=== PATIENT | female | born 2000 | race Caucasian/White ===

== ENCOUNTER 2021-08-27 12:03 | Emergency (ER) | payer BC, MEDICAID, SELFPAY ==
[2021-08-27 12:16] VITALS: BP 128/84; PULSE 95; RESP 16; TEMP 36.9; O2SAT 98
--- NOTE | 2021-08-27 12:22 | W.ED.ABDPA2 ---
HPI - Abdominal Pain General: Chief Complaint: Abdominal Pain Stated Complaint: Loose stool, stomach cramps, bleeding Time Seen by Provider: 08/27/21 12:21 History of Present Illness: HPI narrative: Ms. Rosales is a 21-year-old lady without significant past medical history presents to the emergency department due to diarrhea and blood in stool. She endorses approximately 1 month ago had fairly sudden onset of diarrhea. Since that time she has had episodes of watery stools whenever she has bowel movements. Denies known provoking factor, no antibiotic use. Additionally approximately 1 week ago she developed nausea and vomiting associated with this. Has had difficulty keeping down p.o. intake. Last night she developed blood in her stool. Initially she just noticed it on the toilet paper however subsequently has it with bowel movements in the toilet bowl. No history of hemorrhoids or similar. Mild associated abdominal cramping. Does have some discomfort occasionally relieved with bowel movement. No other signs of systemic illness. No other specific known exacerbating or relieving factors. Patient does believe that she is currently with LMP approximately July 03 or . She did have a positive home test 3 weeks ago. No major surgeries. No allergies. No family history of inflammatory bowel disorders. Review of Systems General: Reports: 10 or more systems reviewed and unremarkable except in HPI and below Physical Exam Narrative: EXAM NARRATIVE: GENERAL/CONSTITUTIONAL - mildly ill-appearing. Eyes - PERRL, no conjunctival injection ENMT - Atraumatic external nose and ears. Moist mucous membranes NECK - supple. trachea midline CARDIOVASCULAR - regular rate and rhythm. RESPIRATORY -clear to auscultation bilaterally. ABDOMEN/GI - mild suprapubic region tenderness palpation without evidence of peritonitis. RECTAL -performed with rehabilitation team lead present. External hemorrhoids palpated on clinical exam, no other acute finding. No grupo blood on glove. MSK - Extremities without obvious deformity or tenderness to palpation SKIN - Warm, Dry NEURO - alert and appropriately oriented. Moves all extremities equally. Course ED course: - Patient was seen and evaluated by me at bedside - Patient placed on cardiac monitors, IV access obtained - Initial evaluation notable for as noted above -Fluids ordered - Labs notable for no leukocytosis, normal hemoglobin. Metabolic panel with mild evidence of dehydration, potassium replenishment ordered. - Imaging notable for [id number] ultrasound without visualized IUP despite hCG, therefore formal radiology performed ultrasound warranted. - Upon serial reexamination after treatment the patient was improved. I discussed risks and benefits of additional imaging, patient comfortable foregoing CT imaging at this time given risk to fetus - Based on patient history, evaluation, labs, and imaging as interpreted the most likely cause of the patient's condition is unclear. Evidence of dehydration present. Hemorrhoids are possible because of blood in stool. - Patient tolerated p.o. intake. - The results of ED evaluation were discussed with the patient including prescriptions and/or symptomatic cares (if applicable) including appropriate and responsible use, followup plan, and return precautions. The patient verbalized understanding and felt safe for discharge. - Patient discharged in satisfactory condition. Vital Signs: Vital signs: Vital Signs Temperature 98.4 F 08/27/21 12:16 Pulse Rate 84 08/27/21 16:32 Respiratory Rate 16 08/27/21 16:32 Blood Pressure 111/64 08/27/21 16:32 Pulse Oximetry 99 08/27/21 16:32 MDM - Abdominal Pain Medical Records: Attestation: I reviewed the patient's medical records. Lab Data: Attestation: I reviewed the patient's lab results. Labs: Lab Results 08/27/21 08/27/21 08/27/21 12:55 12:55 12:55 WBC Cancelled Corrected WBC Cancelled RBC Cancelled Hgb Cancelled Hct Cancelled MCV Cancelled MCH Cancelled MCHC Cancelled RDW Cancelled Plt Count Cancelled MPV Cancelled Gran % Cancelled Neut % (Auto) Cancelled Lymph % (Auto) Cancelled Fisher % (Auto) Cancelled Eos % (Auto) Cancelled Baso % (Auto) Cancelled Neut # (Auto) Cancelled Lymph # (Auto) Cancelled Fisher # (Auto) Cancelled Eos # (Auto) Cancelled Baso # (Auto) Cancelled Absolute Gran (aut o) Cancelled Nucleated RBC % (a uto) Cancelled Nucleated RBCs # Cancelled Sodium 134 mmol/L L mmol /L (136-145) Potassium 3.1 mmol/L L mmol /L (3.5-5.1) Chloride 98 mmol/L mmol/L (98-107) Carbon Dioxide 18 mmol/L L mmol/ L (22-29) Anion Gap 21.1 H (5-19) BUN 5 mg/dL L mg/dL (6-20) Creatinine 0.5 mg/dL mg/dL (0.5-0.9) GFR Calculation 152.9 mL/min H mL /min (90-130) Glucose 96 mg/dL mg/dL (65-115) Calculated Osmolal ity 275 mOsm/kg L mOs m/kg (285-295) Calcium 8.5 mg/dL mg/dL (8.5-10.5) Magnesium Total Bilirubin 0.2 mg/dL mg/dL (0.15-1.2) AST 24 U/L U/L (0-32) ALT 72 U/L H U/L (0-33) Alkaline Phosphata se 90 IU/L IU/L (35-105) Total Protein 7.6 g/dL g/dL (6.6-8.7) Albumin 4.1 g/dL g/dL (3.5-5.2) Globulin 3.5 g/dL g/dL (1.3-4.6) HCG, Qual Positive H (Negative) Ser , Adrianne i-Qnt Urine Color Urine Appearance Urine pH Ur Specific Gravit y Urine Protein Urine Glucose (UA) Urine Ketones Urine Blood Urine Nitrate Urine Bilirubin Urine Urobilinogen Ur Leukocyte Rosie ase Urine RBC Urine WBC Ur Squamous Epith Cells Amorphous Sediment Urine Bacteria 08/27/21 08/27/21 08/27/21 12:55 12:55 12:55 WBC Corrected WBC RBC Hgb Hct MCV MCH MCHC RDW Plt Count MPV Gran % Neut % (Auto) Lymph % (Auto) Fisher % (Auto) Eos % (Auto) Baso % (Auto) Neut # (Auto) Lymph # (Auto) Fisher # (Auto) Eos # (Auto) Baso # (Auto) Absolute Gran (aut o) Nucleated RBC % (a uto) Nucleated RBCs # Sodium Potassium Chloride Carbon Dioxide Anion Gap BUN Creatinine GFR Calculation Glucose Calculated Osmolal ity Calcium Magnesium 1.7 mg/dL mg/dL (1.7-2.3) Total Bilirubin AST ALT Alkaline Phosphata se Total Protein Albumin Globulin HCG, Qual Ser , Adrianne i-Qnt 82548.00 mIU/mL m IU/mL Urine Color Yellow (Yellow) Urine Appearance Clear (CLEAR) Urine pH 5 (5-7) Ur Specific Gravit y 1.020 (1.005-1.030) Urine Protein Trace (Negative) Urine Glucose (UA) Norm (Normal) Urine Ketones 1+ H (Negative) Urine Blood 2+ H (Negative) Urine Nitrate Negative (Negative) Urine Bilirubin Neg (Negative) Urine Urobilinogen Norm mg/dL mg/dL (Negative) Ur Leukocyte Rosie ase Negative (Negative) Urine RBC Rare /hpf /hpf (0-2) Urine WBC 0-4 /hpf H /hpf (0-5) Ur Squamous Epith Cells 10-15 /hpf H /hpf (0-5) Amorphous Sediment Not Reportable Urine Bacteria 1+ /hpf H /hpf (NONE) 08/27/21 13:18 WBC 8.9 10^3/uL 10^3/ uL (4.0-10.0) Corrected WBC RBC 4.55 10^6/uL 10^6 /uL (4.1-5.3) Hgb 11.6 g/dL g/dL (11.5-15.3) Hct 36.3 % L % (37.0-47.0) MCV 79.8 fl L fl (81-99) MCH 25.5 pg L pg (28.0-34.0) MCHC 32.0 g/dL g/dL (30.0-36.0) RDW 13.2 % % (12.1-15.1) Plt Count 226 10^3/cmm 10^3 /cmm (130-400) MPV 9.6 fL fL (7.4-10.4) Gran % Neut % (Auto) 73.7 % % Lymph % (Auto) 14.1 % % Fisher % (Auto) 11.7 % % Eos % (Auto) 0.1 % % Baso % (Auto) 0.2 % % Neut # (Auto) 6.53 10^3/uL 10^3 /uL (1.8-7.7) Lymph # (Auto) 1.3 10^3/uL 10^3/ uL (0.8-4.8) Fisher # (Auto) 1.0 10^3/uL H 10^ 3/uL (0.2-0.9) Eos # (Auto) 0.0 10^3/uL 10^3/ uL (0.0-0.8) Baso # (Auto) 0.0 10^3/uL 10^3/ uL (0.0-0.1) Absolute Gran (aut o) Nucleated RBC % (a uto) 0 % % Nucleated RBCs # 0.0 /100WBC /100W BC Sodium Potassium Chloride Carbon Dioxide Anion Gap BUN Creatinine GFR Calculation Glucose Calculated Osmolal ity Calcium Magnesium Total Bilirubin AST ALT Alkaline Phosphata se Total Protein Albumin Globulin HCG, Qual Ser , Adrianne i-Qnt Urine Color Urine Appearance Urine pH Ur Specific Gravit y Urine Protein Urine Glucose (UA) Urine Ketones Urine Blood Urine Nitrate Urine Bilirubin Urine Urobilinogen Ur Leukocyte Rosie ase Urine RBC Urine WBC Ur Squamous Epith Cells Amorphous Sediment Urine Bacteria Discharge Plan Discharge Patient Disposition: Home Clinical Impression: Diarrhea, Dehydration, Blood in stool, External hemorrhoid, Nausea & vomiting, , Hypokalemia Condition: Stable Prescriptions: New pyridoxine (vitamin B6) 25 mg tablet 25 mg PO TID PRN (Reason: nausea and vomiting) Qty: 30 RF: 0 doxylamine succinate 25 mg tablet 25 mg PO Q8H PRN (Reason: nausea and vomiting) Qty: 30 RF: 0 Discharge Orders: Discharge ED (Routine); Ordered 08/27/21 Ordered By: Jeremie Lerma Discharge Diet: Usual diet Discharge Activity: Resume usual activity Patient Instructions: Diarrhea - Adult, Nausea and Vomiting in (ED), Dehydration (ED), Hypokalemia (ED), Abdominal Pain in (ED) Activity Restrictions/Additional Instructions: Thank you for visiting the emergency department. You were seen and evaluated for nausea, vomiting, diarrhea, and black stool. The exact cause of your symptoms is unclear. I believe that the blood in your stools likely secondary to irritation and hemorrhoids. Work-up is limited in the context of . If this persists you may be need further evaluation by a shirrer. You were found to be dehydrated, this will likely be improved with IV fluids. I will send you home with nausea medications. As discussed, these are safe to the best of her knowledge within . Please follow-up with your skilled laborer and primary care provider. Return to the emergency department for worsening symptoms, lightheadedness, dizziness, chest pain, shortness of breath, vaginal bleeding, worsening abdominal pain, or anything else that you are concerned about and feel needs emergency department evaluation. Coding Level of Care Code ED [employer] Operator for Tino Dodge
[2021-08-27] MEDS: sodium chloride 0.9% 1,000 ML 999 ML IV (13:00)
[2021-08-27 13:06] LABS: HCG Qualitative Urine. Positive (Negative)
[2021-08-27 13:20] LABS: Add Urine Microscopic? YES; Bacteria Urine 1+ /hpf; Bilirubin Urine Neg (Negative); Blood Urine 2+ (Negative); Glucose Urine UA Norm (Normal); Ketones Urine 1+ (Negative); Leukocyte Esterase Urine Negative (Negative); Nitrate Urine Negative (Negative); Protein Urine Trace (Negative); RBC Urine RARE /hpf (0-2); Urine Appearance Clear (CLEAR); Urine Color Yellow (Yellow); Urobilinogen Urine Norm (Negative); WBC Urine 0-4 /hpf (0-5); pH Urine 5 (5-7)
[2021-08-27 13:21] LABS: Alanine Aminotransferase 72 U/L (0-33); Albumin Level 4.1 g/dL (3.5-5.2); Alkaline Phosphatase 90 IU/L (35-105); Anion Gap 21.1 (5-19); Aspartate Amino Transferase 24 U/L (0-32); Blood Urea Nitrogen 5 mg/dL (6-20); Calcium 8.5 mg/dL (8.5-10.5); Carbon Dioxide 18 mmol/L (22-29); Chloride 98 mmol/L (98-107); Globulin 3.5 g/dL (1.3-4.6); Glomerular Filtration Rate 152.9 mL/min (90-130); Glucose 96 mg/dL (65-115); Osmolality Calculated 275 mOsm/kg (285-295); Potassium 3.1 mmol/L (3.5-5.1); Sodium 134 mmol/L (136-145); Total Bilirubin 0.2 mg/dL (0.15-1.2); Total Protein 7.6 g/dL (6.6-8.7)
[2021-08-27 13:23] LABS: Basophils % 0.2 %; Eosinophils % 0.1 %; Hematocrit 36.3 % (37.0-47.0); Hemoglobin 11.6 g/dL (11.5-15.3); Lymphocytes # 1.3 10^3/uL (0.8-4.8); Lymphocytes % 14.1 %; Mean Corpuscular Hemoglobin 25.5 pg (28.0-34.0); Mean Corpuscular Volume 79.8 fl (81-99); Mean Platelet Volume 9.6 fL (7.4-10.4); Monocytes % 11.7 %; Neutrophils # 6.53 10^3/uL (1.8-7.7); Neutrophils % 73.7 %; Nucleated Red Blood Cells % 0 %; Platelet Count 226 10^3/cmm (130-400); Red Blood Count 4.55 10^6/uL (4.1-5.3); Red Cell Distribution Width 13.2 % (12.1-15.1); White Blood Count 8.9 10^3/uL (4.0-10.0)
[2021-08-27 13:44] LABS: Magnesium 1.7 mg/dL (1.7-2.3)
[2021-08-27] MEDS: ondansetron 2 mg/ML SDV 2 mL 4 MG IVP (13:48)
[2021-08-27] MEDS: potassium chloride ER 20 mEq Tablet 40 MEQ PO (13:48)
--- NOTE | 2021-08-27 14:23 | USR_ITS ---
PROCEDURE INFORMATION: Exam: US , Transvaginal Exam date and time: 08/27/2021 2:23 PM Age: 21 years old Clinical indication: complicated by abdominal or pelvic pain; First trimester (<14 weeks 0 days); Gestational age or lmp: 8w3d; ; Patient HX: 2 week lower abd pain. Non latex probecover used; Additional info: Abdominal pain, R/O ectopic TECHNIQUE: Imaging protocol: Real-time transvaginal obstetrical ultrasound of the maternal pelvis with image documentation. Transvaginal imaging was used for better evaluation of the fetus, adnexa, and/or cervix. COMPARISON: CR Pelvis AP 1 or 2 views* [id number] 07/22/2018 3:59 PM FINDINGS: Gestation: Live intrauterine gestation. heart rate: heart rate measures 167 bpm. BIOMETRY: Estimated due date (AUA): Estimated date of delivery is 04/06/2022. Gestational age (AUA): Estimated gestational age is 8 weeks 2 days. La Carla-Rump length: La Carla lump length measures 1.78 cm. MATERNAL: Uterus: Retroverted uterus measuring 8.7 x 7.8 x 7.0 cm. Right ovary/adnexa: The right ovary measures 2.8 x 2.2 x 3.0 cm. No suspicious ovarian mass. Vascularity to the right ovary is preserved. There is a small simple appearing paraovarian cyst measuring 1 cm in size. Left ovary/adnexa: The left ovary measures 3.6 x 1.1 x 1.4 cm. No suspicious ovarian mass. Vascularity to the left ovary is preserved. US/US OB lmt with transvaginal IMPRESSION: 1. No acute sonographic abnormalities. 2. Live intrauterine gestation. 3. Estimated gestational age is 8 weeks 2 days with estimated date of delivery of 04/06/2022.
[2021-08-27 16:32] VITALS: BP 111/64; PULSE 84; RESP 16; O2SAT 99
== END 2021-08-27 16:34 | disposition home or self-care (01) ==
PROVIDERS: Emergency Provider Emergency Medicine
DX: O26.899 Other specified pregnancy related conditions, unspecified trimester (principal); R19.7 Diarrhea, unspecified; E86.0 Dehydration; K64.4 Residual hemorrhoidal skin tags; R11.2 Nausea with vomiting, unspecified; E87.6 Hypokalemia; Z3A.00 Weeks of gestation of pregnancy not specified
CPT/HCPCS: 36415; 76815; 76817; 80053; 81001; 81025; 83735; 84702; 85025; 96361; 96374; 99283; J2405; J7030